=== PATIENT | male | born 1980 | race American Indian/Alaskan Native ===

== ENCOUNTER 2017-02-19 21:46 | Emergency (ER) | payer MEDICARE ==
[2017-02-20 00:19] LABS: Basophils % (Auto) 0.8 % (0.0-1.8); Hematocrit 48.5 % (35.5-45.6); Hemoglobin 15.9 gm/dl (11.8-15.2); Mean Corpuscular HGB Conc 33 % (32-34); Mean Corpuscular Hemoglobin 28 pg (28-32); Mean Corpuscular Volume 87 fl (84-94); Red Cell Distribution Width 13.9 % (13.2-15.2); White Blood Count 12.7 K/mm3 (4.5-11.0)
[2017-02-20 00:25] LABS: Platelet Count 234 K/mm3 (140-440)
[2017-02-20 00:33] LABS: Anion Gap 26 mmol/L; BUN/Creatinine Ratio 9.28; Blood Urea Nitrogen 13 mg/dL (9-20); Calcium 10.2 mg/dL (8.4-10.2); Carbon Dioxide 20 mmol/L (22-30); Chloride 85.8 mmol/L (98-107); Glucose 457 mg/dL (75-100); Potassium 4.6 mmol/L (3.6-5.0); Sodium 127 mmol/L (137-145)
--- NOTE | 2017-02-20 08:02 | XRay Report ---
ROUTINE CHEST, TWO VIEWS: HISTORY: Shortness of breath. The trachea, heart, mediastinal contour, lung boyce and bony thorax are unremarkable. IMPRESSION: Unremarkable chest x-ray.
[2017-02-20] MEDS ORDERED: NACL 0.9% 1000 ML 1,000 ML ONE (08:45)
[2017-02-20] MEDS ORDERED: TORADOL IV ONE (10:18)
[2017-02-20] MEDS ORDERED: NACL 0.9% 1000 ML 1,000 ML IV ONE (10:18)
[2017-02-20] MEDS ORDERED: MORPHINE IV ONE (10:18)
[2017-02-20] MEDS ORDERED: TESSALON PERLES PO ONE (10:20)
--- NOTE | 2017-02-20 10:21 | Emergency Department Report ---
ED General Adult HPI - General Chief complaint: Dyspnea/Respdistress Stated complaint: RT SIDE RIB PAIN/COUGH/STUFFY NOSE Time Seen by Provider: 02/20/17 10:12 Source: patient, RN notes reviewed Mode of arrival: Ambulatory Limitations: No Limitations - History of Present Illness Initial comments: This is a 37-year-old male. He is previously unknown to me. He has a past medical history of diabetes and hypertension. The patient reports that his primary care doctors at the [facility]. He presents to the ER complaining of right lateral flank pain/chest wall pain after coughing on Sunday. He reports that the pain is sharp, and increases with twisting, and coughing. There is no leg pain. There is no leg swelling. No recent trips greater than 4 hours. No recent hospital admissions. There is no hematemesis. There is no bright red blood per rectum. He also complains of nasal congestion and nasal stuffiness. -: Gradual Location: abdomen Severity scale (0 -10): 7 Quality: aching Consistency: intermittent Improves with: rest Worsens with: movement Associated Symptoms: cough. denies: chest pain, diaphoresis, fever/chills, headaches, loss of appetite, malaise, nausea/vomiting, rash, shortness of breath , syncope, weakness - Related Data Previous Rx's Medication Instructions Recorded Last Taken Type Gemfibrozil [Lopid] 600 mg PO QHS #30 tablet 03/24/15 Unknown Rx Insulin NPH/Regular [NovoLIN 70/30] 10 unit SQ BIDDIAB #1000 ml 03/24/15 Unknown Rx Lisinopril [Zestril TAB] 20 mg PO QDAY #30 tablet 03/24/15 Unknown Rx Ziprasidone [Geodon] 20 mg PO BID #60 capsule 03/24/15 Unknown Rx diphenhydrAMINE [Benadryl CAP] 50 mg PO QHS PRN #30 capsule 03/24/15 Unknown Rx Albuterol Sulfate [Proair 90 mcg IH Q4HR PRN #2 aer.pow.ba 02/20/17 Unknown Rx Respiclick] Benzonatate [Tessalon Perles] 100 mg PO Q8HR PRN #30 capsule 02/20/17 Unknown Rx Fluticasone [Flonase] 1 spray NS QDAY #1 bottle 02/20/17 Unknown Rx Ibuprofen [Motrin] 600 mg PO Q8H PRN #30 tablet 02/20/17 Unknown Rx Allergies Allergy/AdvReac Type Severity Reaction Status Date / Time No Known Allergies Allergy Verified 03/23/15 21:44 ED Review of Systems ROS: Stated complaint: RT SIDE RIB PAIN/COUGH/STUFFY NOSE Other details as noted in HPI Constitutional: denies: malaise, weakness Eyes: denies: vision change ENT: congestion Respiratory: cough Cardiovascular: as per HPI Gastrointestinal: as per HPI Genitourinary: as per HPI Musculoskeletal: back pain Skin: as per HPI Neurological: as per HPI Psychiatric: as per HPI ED Past Medical Hx - Past Medical History Hx Hypertension: Yes Hx Diabetes: Yes - Social History Smoking Status: Never Smoker Substance Use Type: None - Medications Home Medications: Home Medications Medication Instructions Recorded Confirmed Last Taken Type Gemfibrozil [Lopid] 600 mg PO QHS #30 tablet 03/24/15 Unknown Rx Insulin NPH/Regular [NovoLIN 70/30] 10 unit SQ BIDDIAB #1000 ml 03/24/15 Unknown Rx Lisinopril [Zestril TAB] 20 mg PO QDAY #30 tablet 03/24/15 Unknown Rx Ziprasidone [Geodon] 20 mg PO BID #60 capsule 03/24/15 Unknown Rx diphenhydrAMINE [Benadryl CAP] 50 mg PO QHS PRN #30 capsule 03/24/15 Unknown Rx Albuterol Sulfate [Proair 90 mcg IH Q4HR PRN #2 aer.pow.ba 02/20/17 Unknown Rx Respiclick] Benzonatate [Tessalon Perles] 100 mg PO Q8HR PRN #30 capsule 02/20/17 Unknown Rx Fluticasone [Flonase] 1 spray NS QDAY #1 bottle 02/20/17 Unknown Rx Ibuprofen [Motrin] 600 mg PO Q8H PRN #30 tablet 02/20/17 Unknown Rx ED Physical Exam - General Limitations: No Limitations General appearance: alert, in no apparent distress - Head Head exam: Present: atraumatic, normocephalic - Eye Eye exam: Present: normal appearance, EOMI - ENT ENT exam: Present: normal exam, normal orophraynx, mucous membranes moist, normal external ear exam, other (positive bilateral nasal congestion) - Neck Neck exam: Present: normal inspection, full ROM. Absent: tenderness, meningismus - Respiratory Respiratory exam: Present: normal lung sounds bilaterally. Absent: respiratory distress, wheezes, rales, rhonchi, stridor, chest wall tenderness, accessory muscle use, decreased breath sounds, prolonged expiratory - Cardiovascular Cardiovascular Exam: Present: regular rate, normal rhythm, normal heart sounds. Absent: bradycardia, tachycardia, irregular rhythm, systolic murmur, diastolic murmur, rubs, gallop - GI/Abdominal GI/Abdominal exam: Present: soft, normal bowel sounds. Absent: distended, tenderness, guarding, rebound, rigid, pulsatile mass - Rectal Rectal exam: Present: deferred - Extremities Exam Extremities exam: Present: normal inspection, full ROM, normal capillary refill. Absent: pedal edema, joint swelling, calf tenderness - Back Exam Back exam: Present: normal inspection, full ROM, paraspinal tenderness. Absent : tenderness, CVA tenderness (R), CVA tenderness (L), muscle spasm - Neurological Exam Neurological exam: Present: alert, oriented X3, normal gait, other (Extraocular movements intact. Tongue midline. No facial droop. Facial sensation intact to light touch in the V1, V2, V3 distribution bilaterally. 5 and 5 strength in 4 extremities.. Sensation is intact to light touch in 4 extremities.). Absent : motor sensory deficit - Psychiatric Psychiatric exam: Present: normal affect, normal mood - Skin Skin exam: Present: warm, dry, intact, normal color, other (there is reproducible lateral thoracic wall tenderness, there is reproducible right abdominal wall tenderness.). Absent: rash ED Course Vital Signs 02/19/17 02/20/17 02/20/17 23:55 05:36 09:00 Temperature 98.9 F 98.7 F Pulse Rate 122 H 117 H Respiratory 20 18 16 Rate Blood Pressure 166/114 148/98 Blood Pressure [Right] O2 Sat by Pulse 97 96 Oximetry 02/20/17 12:39 Temperature 98.0 F Pulse Rate 82 Respiratory 16 Rate Blood Pressure Blood Pressure 122/78 [Right] O2 Sat by Pulse Oximetry ED Medical Decision Making - Lab Data Result diagrams: 02/19/17 23:58 02/19/17 23:58 Vital Signs 02/19/17 02/20/17 02/20/17 23:55 05:36 09:00 Temperature 98.9 F 98.7 F Pulse Rate 122 H 117 H Respiratory 20 18 16 Rate Blood Pressure 166/114 148/98 O2 Sat by Pulse 97 96 Oximetry Lab Results 02/19/17 02/19/17 02/20/17 Range/Units 23:58 23:58 09:33 WBC 12.7 H (4.5-11.0) K/mm3 RBC 5.60 H (3.65-5.03) M/mm3 Hgb 15.9 H (11.8-15.2) gm/dl Hct 48.5 H (35.5-45.6) % MCV 87 (84-94) fl MCH 28 (28-32) pg MCHC 33 (32-34) % RDW 13.9 (13.2-15.2) % Plt Count 234 (140-440) K/mm3 Lymph % (Auto) 22.4 (13.4-35.0) % [place] % (Auto) 9.3 H (0.0-7.3) % Eos % (Auto) 3.0 (0.0-4.3) % Baso % (Auto) 0.8 (0.0-1.8) % Lymph # 2.8 (1.2-5.4) K/mm3 [place] # 1.2 H (0.0-0.8) K/mm3 Eos # 0.4 (0.0-0.4) K/mm3 Baso # 0.1 (0.0-0.1) K/mm3 Seg Neutrophils % 64.5 (40.0-70.0) % Seg Neutrophils # 8.2 H (1.8-7.7) K/mm3 PT (12.2-14.9) Sec. INR (0.87-1.13) VBG pH (7.320-7.420) Sodium 127 L (137-145) mmol/L Potassium 4.6 (3.6-5.0) mmol/L Chloride 85.8 L (98-107) mmol/L Carbon Dioxide 20 L (22-30) mmol/L Anion Gap 26 mmol/L BUN 13 (9-20) mg/dL Creatinine 1.4 (0.8-1.5) mg/dL Estimated GFR > 60 ml/min BUN/Creatinine Ratio 9.28 % Glucose 457 H (75-100) mg/dL POC Glucose 320 H (70-105) Calcium 10.2 (8.4-10.2) mg/dL Troponin T < 0.010 (0.00-0.029) ng/mL TSH (0.270-4.200) mlU/mL Free T4 (0.76-1.46) ng/dL 02/20/17 02/20/17 02/20/17 Range/Units 10:34 10:34 10:34 WBC (4.5-11.0) K/mm3 RBC (3.65-5.03) M/mm3 Hgb (11.8-15.2) gm/dl Hct (35.5-45.6) % MCV (84-94) fl MCH (28-32) pg MCHC (32-34) % RDW (13.2-15.2) % Plt Count (140-440) K/mm3 Lymph % (Auto) (13.4-35.0) % [place] % (Auto) (0.0-7.3) % Eos % (Auto) (0.0-4.3) % Baso % (Auto) (0.0-1.8) % Lymph # (1.2-5.4) K/mm3 [place] # (0.0-0.8) K/mm3 Eos # (0.0-0.4) K/mm3 Baso # (0.0-0.1) K/mm3 Seg Neutrophils % (40.0-70.0) % Seg Neutrophils # (1.8-7.7) K/mm3 PT 13.4 (12.2-14.9) Sec. INR 0.97 (0.87-1.13) VBG pH (7.320-7.420) Sodium (137-145) mmol/L Potassium (3.6-5.0) mmol/L Chloride (98-107) mmol/L Carbon Dioxide (22-30) mmol/L Anion Gap mmol/L BUN (9-20) mg/dL Creatinine (0.8-1.5) mg/dL Estimated GFR ml/min BUN/Creatinine Ratio % Glucose (75-100) mg/dL POC Glucose (70-105) Calcium (8.4-10.2) mg/dL Troponin T < 0.010 (0.00-0.029) ng/mL TSH (0.270-4.200) mlU/mL Free T4 1.40 (0.76-1.46) ng/dL 02/20/17 02/20/17 Range/Units 10:34 10:34 WBC (4.5-11.0) K/mm3 RBC (3.65-5.03) M/mm3 Hgb (11.8-15.2) gm/dl Hct (35.5-45.6) % MCV (84-94) fl MCH (28-32) pg MCHC (32-34) % RDW (13.2-15.2) % Plt Count (140-440) K/mm3 Lymph % (Auto) (13.4-35.0) % [place] % (Auto) (0.0-7.3) % Eos % (Auto) (0.0-4.3) % Baso % (Auto) (0.0-1.8) % Lymph # (1.2-5.4) K/mm3 [place] # (0.0-0.8) K/mm3 Eos # (0.0-0.4) K/mm3 Baso # (0.0-0.1) K/mm3 Seg Neutrophils % (40.0-70.0) % Seg Neutrophils # (1.8-7.7) K/mm3 PT (12.2-14.9) Sec. INR (0.87-1.13) VBG pH 7.356 (7.320-7.420) Sodium (137-145) mmol/L Potassium (3.6-5.0) mmol/L Chloride (98-107) mmol/L Carbon Dioxide (22-30) mmol/L Anion Gap mmol/L BUN (9-20) mg/dL Creatinine (0.8-1.5) mg/dL Estimated GFR ml/min BUN/Creatinine Ratio % Glucose (75-100) mg/dL POC Glucose (70-105) Calcium (8.4-10.2) mg/dL Troponin T (0.00-0.029) ng/mL TSH 0.869 (0.270-4.200) mlU/mL Free T4 (0.76-1.46) ng/dL - EKG Data -: EKG Interpreted by Me - EKG Data 02/20/17 12:32 Sinus tachycardia, 108 bpm,, not morphologically consistent with STEMI, borderline rightward axis appears to be new when compared to prior EKG from 201402/20/17 12:33 - Radiology Data Radiology results: report reviewed, image reviewed interpreted by me: X-ray of the chest is negative for acute disease - Medical Decision Making Differential diagnosis: Bronchitis, pneumonia, costochondritis, strained/pulled muscle, dehydration, incidental hyperglycemia, thyroid abnormality Assessment and plan: 37-year-old male who complains of cough, nasal congestion, stuffiness, muscular flank pain that is reproducible, with incidental tachycardia, pseudohyponatremia, and hyperglycemia. There are no pulmonary embolus or DVT risk factors, he is low risk by well's criteria, and he is saturating well. His tachycardia resolved. His hyperglycemia resolved. Venous pH not consistent with acidosis, and the patient felt much improved at the pain medication. He is currently sleeping comfortably in no acute distress , low risk by KEVIN score, low risk by heart score. Given the patient's clinical history of cough, congestion, reproducibility, I don't put the patient requires admission for acute coronary syndrome or stratification. He'll be discharged with cough medication, congestion medication, pain medication, instructions to follow up with outpatient primary care. Return precautions are reviewed. Critical care attestation.: If time is entered above; I have spent that time in minutes in the direct care of this critically ill patient, excluding procedure time. ED Disposition Clinical Impression: Bronchitis, Hyperglycemia Disposition: DC-01 TO HOME OR SELFCARE Is pt being admited?: No Does the pt Need Aspirin: No Condition: Stable Instructions: Acute Bronchitis (ED) Additional Instructions: Take the medications as needed/directed. Please note that blood sugar was elevated upon arrival. This should be followed up by primary care doctor within the next month. Follow up with a primary care doctor within the next 3- 4 weeks. Return to the ER right away with new pain, worsened pain, migration of pain, fevers, chills, intractable nausea or vomiting, inability to tolerate liquid feeds. Long-term complications of high blood sugar include stroke, heart attack, disability, loss of quality of life. Prescriptions: Albuterol Sulfate [Proair Respiclick] 90 mcg IH Q4HR PRN #2 aer.pow.ba PRN Reason: Wheezing Benzonatate [Tessalon Perles] 100 mg PO Q8HR PRN #30 capsule PRN Reason: Cough Fluticasone [Flonase] 1 spray NS QDAY #1 bottle Ibuprofen [Motrin] 600 mg PO Q8H PRN #30 tablet PRN Reason: Pain Referrals: PRIMARY CARE,MD [Primary Care Provider] - 3-5 Days JAY BOOTH MD [Staff Physician] - 3-5 Days
[2017-02-20] MEDS ORDERED: MORPHINE ONE (10:44)
[2017-02-20] MEDS ORDERED: FLONASE NS ONE (11:00)
[2017-02-20 12:00] LABS: INR 0.97 (0.87-1.13)
[2017-02-20 12:39] VITALS: BP 122/78
== END 2017-02-20 13:00 | disposition home or self-care (01) ==
LOC: ED 21:46
DX: J40 Bronchitis, not specified as acute or chronic (principal); E11.65 Type 2 diabetes mellitus with hyperglycemia; I10 Essential (primary) hypertension; Z79.4 Long term (current) use of insulin
CPT/HCPCS: 36415; 71020; 80048; 82805; 82962; 84439; 84443; 84484; 85025; 85610; 96361; 96374; 96375; 99284; J2270; J7030; J1815